=== PATIENT | male | born 1990 | race Caucasian/White ===

== ENCOUNTER 2020-12-20 06:56 | Emergency (ER) | payer OTHER ==
[2020-12-20 07:20] VITALS: BP 133/83; PULSE 70; TEMP 99; BMI 25.7
== END 2020-12-20 08:10 | disposition left against medical advice (07) ==
LOC: JER 06:56
DX: R22.0 Localized swelling, mass and lump, head (principal); S01.81XA Laceration without foreign body of other part of head, initial encounter
CPT/HCPCS: 99283-25